=== PATIENT | male | born 1950 | race Caucasian/White ===

== ENCOUNTER 2021-06-16 04:16 | Day surgery (SDC) | payer OTHER ==
[2021-06-14 12:22] VITALS: BMI 24.3
[~2021-06-16 04:16] MED LIST: BUPIVACAINE HCL/PF 0.5% (5MG/ML) 10 ML VIAL IJ ONE; LIDOCAINE HCL 1%, 10 MG/ML (20ML VIAL) NR ONE
[2021-06-16] MEDS ORDERED: LIDOCAINE HCL 1%, 10 MG/ML (20ML VIAL) ONE (07:15)
[2021-06-16] MEDS ORDERED: BUPIVACAINE HCL/PF 0.5% (5MG/ML) 10 ML VIAL ONE (07:15)
[2021-06-16] MEDS ORDERED: SUCCINYLCHOLINE CHLORIDE 200 MG/10 ML SYRINGE ONE (07:47)
[2021-06-16] MEDS ORDERED: LIDOCAINE HCL/PF 2% SDV 5ML VIAL ONE (07:47)
[2021-06-16] MEDS ORDERED: MIDAZOLAM HCL 2 MG/2 ML SINGLE DOSE VIAL ONE (07:47)
[2021-06-16] MEDS ORDERED: PROPOFOL 20 ML ONE ×2 (07:47)
[2021-06-16] MEDS ORDERED: BUPIVACAINE HCL/PF 0.5% (5MG/ML) 10 ML VIAL IJ ONE ×3 (09:02)
[2021-06-16] MEDS ORDERED: LIDOCAINE HCL 1%, 10 MG/ML (20ML VIAL) NR ONE ×2 (09:02)
[2021-06-16] MEDS ORDERED: ONDANSETRON 4 MG/2 ML VIAL IVPUSH PRN (09:41)
[2021-06-16] MEDS ORDERED: oxyCODONE HCL 5 MG TABLET PO PRN ×2 (09:41)
[2021-06-16] MEDS ORDERED: LACTATED RINGERS SOLUTION 1,000 ML IV SCH (09:45)
[2021-06-16 10:39] VITALS: BP 128/86; PULSE 54; TEMP 97.2
== END 2021-06-16 10:55 | disposition home or self-care (01) ==
LOC: JASU-SURG 04:16
PROVIDERS: ATTEND Orthopaedic Surgery
PROC: 0RCP0ZZ Extirpation of Matter from Left Wrist Joint, Open Approach (ICD-10-PCS; 2021-06-16)
PROC: 0LB60ZZ Excision of Left Lower Arm and Wrist Tendon, Open Approach (ICD-10-PCS; principal; 2021-06-16 09:00)
DX: M67.432 Ganglion, left wrist (principal); M25.732 Osteophyte, left wrist; M65.832 Other synovitis and tenosynovitis, left forearm

== ENCOUNTER 2021-08-11 04:21 | Day surgery (SDC) | payer OTHER ==
[2021-08-06 14:24] VITALS: BMI 25.8
[2021-08-11] MEDS ORDERED: BUPIVACAINE HCL/PF 0.5% (5MG/ML) 10 ML VIAL ONE (07:27)
[2021-08-11] MEDS ORDERED: LIDOCAINE HCL 1%, 10 MG/ML (20ML VIAL) ONE ×2 (07:27→07:43)
[2021-08-11] MEDS ORDERED: LIDO 2%/EPI 1:200000 PRESRVFRE (20 ML SDVIAL) INF ONE ×3 (07:39→08:10)
[2021-08-11] MEDS ORDERED: BUPIVACAINE HCL/PF 0.5% (5MG/ML) 10 ML VIAL IJ ONE ×3 (07:42→08:10)
[2021-08-11] MEDS ORDERED: PROPOFOL 20 ML ONE ×2 (07:44)
[2021-08-11] MEDS ORDERED: MIDAZOLAM HCL 2 MG/2 ML SINGLE DOSE VIAL ONE (07:44)
[2021-08-11] MEDS ORDERED: ceFAZolin 2 GRAM PREMIX BAG IVPB ONE (08:10)
[2021-08-11] MEDS ORDERED: DEXAMETHASONE SOD PHOSPHATE 4 MG/1 ML VIAL ONE (08:12)
[2021-08-11] MEDS ORDERED: KETOROLAC TROMETHAMINE 30 MG/1 ML VIAL ONE (08:12)
[2021-08-11] MEDS ORDERED: ceFAZolin SODIUM 1 GM VIAL ONE (08:16)
[2021-08-11 09:18] VITALS: BP 118/77; PULSE 60; TEMP 98.9
== END 2021-08-11 11:23 | disposition home or self-care (01) ==
LOC: JASU-SURG 04:21
PROVIDERS: ATTEND Orthopaedic Surgery
PROC: 01N50ZZ Release Median Nerve, Open Approach (ICD-10-PCS; principal; 2021-08-11 08:05)
PROC: 0LB50ZZ Excision of Right Lower Arm and Wrist Tendon, Open Approach (ICD-10-PCS; 2021-08-11 08:05)
DX: G56.01 Carpal tunnel syndrome, right upper limb (principal); M67.431 Ganglion, right wrist; M65.88 Other synovitis and tenosynovitis, other site
CPT/HCPCS: 88304-TC